=== PATIENT | male | born 1960 | race Two or more races ===

== ENCOUNTER 2022-10-24 09:59 | Inpatient (IN) | payer MEDICAID, OTHER ==
[~2022-10-24] VITALS: Ht 170.2 cm; Wt 127.9 kg
[2022-10-24] VITALS (7 sets, daily range): BP systolic 104–176; BP diastolic 71–118
[2022-10-24 10:38] LABS: Basophils # (auto) 0.1 10 ^3/uL (0-0.2); Basophils % (auto) 0.5 % (0.0-2.0); Eosinophils # (auto) 0.4 10 ^3/uL (0-0.8); Eosinophils % (auto) 3.2 % (0.0-7.0); Hematocrit 49.2 % (41.0-53.0); Hemoglobin 15.7 g/dL (13.5-17.5); Lymphocytes # (auto) 4.8 10 ^3/uL (0.4-5.4); Lymphocytes % (auto) 39.4 % (10.0-50.0); Mean Corpuscular Hemoglobin 27.7 pg (28.0-32.0); Mean Corpuscular Hgb Conc. 31.8 g/dL (32.0-36.0); Mean Corpuscular Volume 87.1 fL (80.0-100.0); Monocytes # (auto) 0.9 10 ^3/uL (0-1.3); Monocytes % (auto) 7.1 % (0.0-12.0); Neutrophils # (auto) 6.1 10 ^3/uL (1.6-8.6); Neutrophils % (auto) 49.8 % (37.0-80.0); Nucleated Red Blood Cells % 0.1 %; Red Blood Cells 5.64 10^6/uL (4.5-5.90); Red Cell Distribution Width 15.2 % (11.8-14.3); White Blood Cell 12.1 10^3/uL (4.4-10.8)
[2022-10-24 10:47] LABS: Albumin 3.4 g/dL (3.4-5.0); Calcium 8.6 mg/dL (8.5-10.1); Potassium 3.9 mmol/L (3.5-5.1)
[2022-10-24 10:49] LABS: BUN/Creatinine Ratio 11.5; Total Protein 7.1 g/dL (6.4-8.2)
[2022-10-24] MEDS ORDERED: ASPirin 81 mg TAB PO ONE (12:15)
[2022-10-24] MEDS ORDERED: IOHEXOL 350 MG/ML 100ML IJ ONE (12:22)
[2022-10-24] MEDS ORDERED: ENOXAPARIN SOD 120 MG/0.8 ML SYRINGE SC ONE (13:15)
[2022-10-24] MEDS ORDERED: HEPARIN SODIUM (PORCINE) 5000 UNITS/ML 1ML VIAL IV ONE ×3 (13:30→20:00)
[2022-10-24] MEDS ORDERED: HEPARIN DRIP/D5W 100UNITS/ML 250 ML IV SCH ×2 (13:30→20:00)
[2022-10-24 14:05] LABS: INR 1.04 (0.9-1.15); Partial Thromboplastin Time 28.2 sec (24.6-33.4)
[2022-10-24] MEDS ORDERED: NITROGLYCERIN 0.4 MG SL TAB SL PRN (15:30)
[2022-10-24] MEDS ORDERED: MORPHINE SULFATE INJ 2 MG/ml SYRG IV PRN (15:30)
[2022-10-24] MEDS ORDERED: IODIXANOL 320MG/ML 100ML BTL IV ONE ×3 (16:36→19:12)
[2022-10-24] MEDS ORDERED: LIDOCAINE 2%HCL (LOCAL ANESTH.) INJ 10ml MDV ONE (16:37)
[2022-10-24] MEDS ORDERED: ANGIOMAX 250 MG VIAL IV ONE ×2 (16:50→17:52)
[2022-10-24] MEDS ORDERED: HEPARIN SODIUM (PORCINE) 5000 UNITS/ML 1ML VIAL ONE ×2 (16:51→19:19)
[2022-10-24] MEDS ORDERED: SODIUM CHL 0.9% 50 ML ONE ×2 (16:51→17:52)
[2022-10-24] MEDS ORDERED: fentaNYL CITRATE 100 MCG/2 ML VL ONE (16:51)
[2022-10-24] MEDS ORDERED: MIDAZOLAM HCL 2MG/2ML 2ml VIAL (1mg/ml) ONE (16:51)
[2022-10-24] MEDS ORDERED: HYDROcodone-ACET 5/325MG TAB PO PRN (20:00)
[2022-10-24] MEDS ORDERED: ACETAMINOPHEN 500 MG TAB PO PRN (20:00)
[2022-10-24] MEDS ORDERED: ONDANSETRON HCL 4 MG/2 ML VIAL IV PRN (20:00)
[2022-10-24 20:43] LABS: INR 2.46 (0.9-1.15); Partial Thromboplastin Time 69.9 sec (24.6-33.4)
[2022-10-24] MEDS: SODIUM CHLORIDE 0.9% 1,000 ML IV SCH (21:17)
[2022-10-25] VITALS (9 sets, daily range): BP systolic 100–133; BP diastolic 48–84
[2022-10-25 03:52] LABS: Basophils # (auto) 0 10 ^3/uL (0-0.2); Basophils % (auto) 0.6 % (0.0-2.0); Eosinophils # (auto) 0.2 10 ^3/uL (0-0.8); Eosinophils % (auto) 2.5 % (0.0-7.0); Hematocrit 41.6 % (41.0-53.0); Hemoglobin 13.5 g/dL (13.5-17.5); Lymphocytes # (auto) 2.6 10 ^3/uL (0.4-5.4); Lymphocytes % (auto) 30.4 % (10.0-50.0); Mean Corpuscular Hemoglobin 28.1 pg (28.0-32.0); Mean Corpuscular Hgb Conc. 32.4 g/dL (32.0-36.0); Mean Corpuscular Volume 86.6 fL (80.0-100.0); Monocytes # (auto) 0.6 10 ^3/uL (0-1.3); Monocytes % (auto) 7.4 % (0.0-12.0); Neutrophils % (auto) 59.1 % (37.0-80.0); Nucleated Red Blood Cells % 0.1 %; Red Blood Cells 4.81 10^6/uL (4.5-5.90); White Blood Cell 8.5 10^3/uL (4.4-10.8)
[2022-10-25 04:03] LABS: BUN/Creatinine Ratio 17.2; Calcium 8.1 mg/dL (8.5-10.1); Potassium 4.3 mmol/L (3.5-5.1)
[2022-10-25 04:05] LABS: INR 1.08 (0.9-1.15); Partial Thromboplastin Time 36.1 sec (24.6-33.4)
[2022-10-25 04:06] LABS: Total Protein 6.3 g/dL (6.4-8.2)
[2022-10-25] MEDS: SODIUM CHLORIDE 0.9% 1,000 ML IV SCH (06:41)
[2022-10-25] MEDS ORDERED: ASPirin 81 mg TAB PO SCH (10:00)
[2022-10-25] MEDS ORDERED: PANTOPRAZOLE 40 MG/10 ML VIAL INJ IV SCH (10:00)
[2022-10-25] MEDS ORDERED: IODIXANOL 320MG/ML 100ML BTL IV ONE (10:02)
[2022-10-25] MEDS ORDERED: LIDOCAINE 2%HCL (LOCAL ANESTH.) INJ 10ml MDV ONE (10:03)
[2022-10-25] MEDS ORDERED: MIDAZOLAM HCL 2MG/2ML 2ml VIAL (1mg/ml) ONE (10:31)
[2022-10-25] MEDS ORDERED: fentaNYL CITRATE 100 MCG/2 ML VL ONE (10:31)
[2022-10-25] MEDS ORDERED: ANGIOMAX 250 MG VIAL IV ONE (10:31)
[2022-10-25] MEDS ORDERED: SODIUM CHL 0.9% 50 ML ONE (10:31)
[2022-10-25] MEDS ORDERED: ENOXAPARIN SOD 100 MG/1 ML SYRINGE SC ONE (11:45)
[2022-10-25] MEDS ORDERED: RIVAROXABAN 20 MG TAB PO SCH ×2 (12:30→18:00)
[2022-10-25] MEDS ORDERED: ATORVASTATIN 20 MG TAB PO SCH (22:00)
[2022-10-26] MEDS ORDERED: ENOXAPARIN SOD 120 MG/0.8 ML SYRINGE SC SCH (04:00)
[2022-10-26 05:00] VITALS: BP 114/67
[2022-10-26 09:00] VITALS: BP 151/82
[2022-10-26 11:06] LABS: Basophils # (auto) 0 10 ^3/uL (0-0.2); Basophils % (auto) 0.4 % (0.0-2.0); Eosinophils # (auto) 0.3 10 ^3/uL (0-0.8); Eosinophils % (auto) 4.7 % (0.0-7.0); Hematocrit 42.1 % (41.0-53.0); Hemoglobin 13.4 g/dL (13.5-17.5); Lymphocytes # (auto) 2.1 10 ^3/uL (0.4-5.4); Lymphocytes % (auto) 29.5 % (10.0-50.0); Mean Corpuscular Hemoglobin 27.8 pg (28.0-32.0); Mean Corpuscular Hgb Conc. 31.9 g/dL (32.0-36.0); Mean Corpuscular Volume 87.1 fL (80.0-100.0); Monocytes # (auto) 0.6 10 ^3/uL (0-1.3); Monocytes % (auto) 8.3 % (0.0-12.0); Neutrophils % (auto) 57.1 % (37.0-80.0); Red Blood Cells 4.83 10^6/uL (4.5-5.90); Red Cell Distribution Width 15.1 % (11.8-14.3); White Blood Cell 7.1 10^3/uL (4.4-10.8)
[2022-10-26 11:30] LABS: Albumin 3.2 g/dL (3.4-5.0); Calcium 8.6 mg/dL (8.5-10.1); Potassium 4.2 mmol/L (3.5-5.1)
[2022-10-26 11:35] LABS: BUN/Creatinine Ratio 13.6; Bilirubin, Total 0.9 mg/dL (0.2-1.0); Total Protein 6.4 g/dL (6.4-8.2)
[2022-10-26 12:30] VITALS: BP 148/88
[2022-10-26] MEDS ORDERED: RIV20T PO (13:56)
[2022-10-26] MEDS ORDERED: ATOR20TA50 PO (13:56)
== END 2022-10-26 16:30 | disposition home or self-care (01) | DRG 182 ==
LOC: ER 09:59 → TELE 15:17 → EDBD 15:17 → TELE-WESTW 20:40
PROVIDERS: ADMIT Nurse Practitioner Family; ATTEND Student in an Organized Health Care Education/Training Program
PROC: 02CQ3ZZ Extirpation of Matter from Right Pulmonary Artery, Percutaneous Approach (ICD-10-PCS; 2022-10-24)
PROC: B31SYZZ Fluoroscopy of Right Pulmonary Artery using Other Contrast (ICD-10-PCS; 2022-10-24)
PROC: 02CR3ZZ Extirpation of Matter from Left Pulmonary Artery, Percutaneous Approach (ICD-10-PCS; 2022-10-24)
PROC: 04CL3ZZ Extirpation of Matter from Left Femoral Artery, Percutaneous Approach (ICD-10-PCS; principal; 2022-10-25)
PROC: 04CN3ZZ Extirpation of Matter from Left Popliteal Artery, Percutaneous Approach (ICD-10-PCS; 2022-10-25)
PROC: B519YZZ Fluoroscopy of Inferior Vena Cava using Other Contrast (ICD-10-PCS; 2022-10-25)
PROC: B51CYZZ Fluoroscopy of Left Lower Extremity Veins using Other Contrast (ICD-10-PCS; 2022-10-25)
DX: I82.412 Acute embolism and thrombosis of left femoral vein (principal); I26.92 Saddle embolus of pulmonary artery without acute cor pulmonale; E66.01 Morbid (severe) obesity due to excess calories; E78.5 Hyperlipidemia, unspecified; R73.03 Prediabetes; R73.9 Hyperglycemia, unspecified; Z68.41 Body mass index [BMI] 40.0-44.9, adult; Z79.01 Long term (current) use of anticoagulants; Z79.82 Long term (current) use of aspirin
CPT/HCPCS: 33915; 34201; 36415; 71045; 71275; 75741; 75820; 80053; 80061; 81241; 83036; 83735; 83880; 84443; 84484; 85025; 85610; 85730; 86850; 86900; 86901; 87426; 93005; 93306; 93971; 96365; 96376; 99152; 99153; 99291; G0378; J2001; J2250; Q9967

== ENCOUNTER 2022-12-31 12:18 | Emergency (ER) | payer MEDICAID ==
[~2022-12-31] VITALS: Ht 172.7 cm; Wt 135.9 kg
[~2022-12-31 12:18] MED LIST: ATO40T PO; ATOR20TA50 PO; RIV20T PO
[2022-12-31] MEDS ORDERED: RIV20T PO (14:50)
[2022-12-31] MEDS ORDERED: ATO40T PO (14:50)
[2022-12-31 15:18] VITALS: BP 146/90
== END 2022-12-31 15:23 | disposition home or self-care (01) ==
LOC: ER 12:18
DX: F41.9 Anxiety disorder, unspecified (principal); E78.5 Hyperlipidemia, unspecified; Z76.0 Encounter for issue of repeat prescription; Z79.899 Other long term (current) drug therapy

== ENCOUNTER 2023-06-04 11:56 | Emergency (ER) | payer MEDICAID ==
[~2023-06-04] VITALS: Ht 167.6 cm; Wt 146.9 kg
[2023-06-04 13:10] LABS: Basophils # (auto) 0.1 10 ^3/uL (0-0.2); Basophils % (auto) 0.7 % (0.0-2.0); Eosinophils # (auto) 0.2 10 ^3/uL (0-0.8); Eosinophils % (auto) 2.9 % (0.0-7.0); Hematocrit 40.5 % (41.0-53.0); Hemoglobin 13.2 g/dL (13.5-17.5); Lymphocytes # (auto) 2.4 10 ^3/uL (0.4-5.4); Lymphocytes % (auto) 30.9 % (10.0-50.0); Mean Corpuscular Hemoglobin 28.7 pg (28.0-32.0); Mean Corpuscular Hgb Conc. 32.7 g/dL (32.0-36.0); Mean Corpuscular Volume 87.8 fL (80.0-100.0); Monocytes # (auto) 0.8 10 ^3/uL (0-1.3); Monocytes % (auto) 9.8 % (0.0-12.0); Neutrophils # (auto) 4.3 10 ^3/uL (1.6-8.6); Neutrophils % (auto) 55.7 % (37.0-80.0); Nucleated Red Blood Cells % 0.1 %; Red Blood Cells 4.61 10^6/uL (4.5-5.90); Red Cell Distribution Width 15.5 % (11.8-14.3); White Blood Cell 7.8 10^3/uL (4.4-10.8)
[2023-06-04 13:14] LABS: Potassium 3.6 mmol/L (3.5-5.1)
[2023-06-04 13:21] LABS: BUN/Creatinine Ratio 9.6 (10.0-20.0); Bilirubin, Total 0.6 mg/dL (0.2-1.0); Calcium 8.1 mg/dL (8.5-10.1); Total Protein 6.6 g/dL (6.4-8.2)
[2023-06-04] MEDS ORDERED: IOHEXOL 350 MG/ML 100ML IJ ONE (19:51)
[2023-06-04 20:30] LABS: INR 1.04 (0.9-1.15); Partial Thromboplastin Time 22.4 SEC (24.5-34.5)
[2023-06-04] MEDS ORDERED: AMPICILLIN & SULBACTAM SODIUM 3 GM in SODIUM CHL 0.9% 100 ML IV SCH (21:15)
[2023-06-04] MEDS ORDERED: HYDROcodone-ACET 5/325MG TAB PO ONE (21:15)
[2023-06-04] MEDS ORDERED: SODIUM CHLORIDE 0.9% 500 ML IV ONE (21:15)
[2023-06-05] MEDS ORDERED: CLIN-203 PO (00:42)
[2023-06-05] MEDS ORDERED: ALBUAER3 IN (00:42)
[2023-06-05] MEDS ORDERED: ACET1CAP14 PO (00:42)
[2023-06-05 01:40] VITALS: O2SAT 95
[2023-06-05] MEDS ORDERED: VANCOMYCIN 1GM/250ML 250 ML IV ONE (01:45)
[2023-06-05 03:03] VITALS: BP 168/117; PULSE 105; RESP 18; TEMP 97.8; O2SAT 96
== END 2023-06-05 03:03 | disposition home or self-care (01) ==
LOC: ER 11:56
DX: L03.116 Cellulitis of left lower limb (principal); J84.10 Pulmonary fibrosis, unspecified; M25.562 Pain in left knee; M25.561 Pain in right knee; R07.89 Other chest pain; R60.0 Localized edema; E11.9 Type 2 diabetes mellitus without complications; E78.5 Hyperlipidemia, unspecified; I10 Essential (primary) hypertension
CPT/HCPCS: 36415; 71275; 73562; 80053; 83880; 84443; 84484; 85025; 85610; 85730; 93970; 96365; 99285; J3370; Q9967; 93005

== ENCOUNTER 2025-04-20 08:01 | Day surgery (SDC) | payer MEDICAID ==
[~2025-04-20] VITALS: Ht 172.7 cm; Wt 121.6 kg
[~2025-04-20 08:01] MED LIST changes: +AMLO1TAB23 PO; -ATO40T PO; -ATOR20TA50 PO; +CHOL100047 PO; +EMPA1TAB3 PO; +GLIP10TA9 PO; +HYDR12.59 PO; +LOSA-535 PO; +METO-6 PO
[2025-04-20] MEDS ORDERED: ceFAZolin 2 GM/D5W50ml 50 ML IV ONE (09:36)
[2025-04-20] MEDS ORDERED: PROPOFOL 10 MG/ML 20 ML IV ONE (11:39)
[2025-04-20] MEDS ORDERED: fentaNYL CITRATE 100 MCG/2 ML VL ONE (11:39)
[2025-04-20] MEDS ORDERED: KETAMINE 50mg/ML 1ml syringe ONE (11:39)
[2025-04-20] MEDS ORDERED: LIDOCAINE 1% INJ PF 5ML AMP ONE (11:39)
[2025-04-20] MEDS ORDERED: MIDAZOLAM HCL 2MG/2ML 2ml VIAL (1mg/ml) ONE (11:39)
[2025-04-20] MEDS ORDERED: ONDANSETRON HCL 4 MG/2 ML VIAL ONE (11:39)
[2025-04-20] MEDS ORDERED: METOCLOPRAMIDE HCL 5MG/ml INJ 2ml VIAL IV ONE (12:15)
[2025-04-20] MEDS ORDERED: MORPHINE SULFATE 4 MG/ML SYR/VIAL IV PRN (12:15)
[2025-04-20] MEDS ORDERED: KETOROLAC TROMETH 30 MG/ML 1ML VIAL IV ONE (12:15)
[2025-04-20] MEDS ORDERED: MORPHINE SULFATE INJ 2 MG/ml SYRG IV PRN (12:15)
[2025-04-20] MEDS ORDERED: ACCU-CHEK COMFORT CURVE STRIP VI ONE (12:15)
[2025-04-20] MEDS ORDERED: HYDROmorphone HCL 2 MG/ML VL/or syr IV PRN ×2 (12:15)
[2025-04-20] MEDS: BUPIVACAINE HCL 0.25% P/F 10 ML VIAL ONE (12:41)
[2025-04-20 12:49] VITALS: PULSE 72; RESP 20; TEMP 98.4; O2SAT 97
[2025-04-20 13:29] VITALS: BP 118/73; PULSE 66; RESP 15; O2SAT 96
--- NOTE | 2025-04-21 07:45 | DVHOP2 ---
Operative Report - 2 Report Details Date: 04/20/25 Preop Diagnosis: Right hand mass Postop Diagnosis: Right hand mass Surgeon: Justen Askew MD Billboard Installer: Benjamín NEAL Anesthesiologist: Nael HOFFMAN Anesthesia: Mac, Local Consent: The patient was informed of the risks and benefits of the procedure. These include but are not limited to complications of anesthesia, postoperative infection, incomplete relief of symptoms, recurrence of symptoms, damage to blood vessels, nerves and tendons, deep venous thrombosis, pulmonary embolism and possible need for repeat surgery in the future. Estimated Blood Loss: 2 cc Name of Procedure Performed Right dorsal hand mass removal, extensor tendon debridement Procedure Details Procedure Details: After administering appropriate antibiotics and anesthesia, the upper extremity was prepped and draped in the usual standard fashion. The arm was exsanguinated with Esmarch, and the tourniquet inflated to 250 mmHg. A 4 cm transverse incision was made over the right hand mass. Dissection was carried down to the extensor sheath with care taken to identify and protect the neurovascular bundles. Patient was noted to have a large mass structure off the extensor sheath which was removed with contents cultured and the cyst was debrided. Extensor sheath was debrided along with synovectomy. After irrigating out the wound with copious amounts of sterile saline, the skin was closed with 3-0 nylon simple interrupted sutures. The patient was sent to the recovery room in good condition, having tolerated the procedure well. Specimen: culture; specimen Condition Good Disposition Home JUSTEN ASKEW MD Apr 21, 2025 07:45
== END 2025-04-20 13:39 | disposition home or self-care (01) ==
LOC: SUR 08:01
PROVIDERS: ATTEND Orthopaedic Surgery Adult Reconstructive Orthopaedic Surgery
DX: R22.31 Localized swelling, mass and lump, right upper limb (principal); M67.843 Other specified disorders of tendon, right hand; M79.89 Other specified soft tissue disorders; M17.0 Bilateral primary osteoarthritis of knee; Z79.899 Other long term (current) drug therapy; Z86.718 Personal history of other venous thrombosis and embolism; Z98.890 Other specified postprocedural states; Z88.0 Allergy status to penicillin
CPT/HCPCS: 26160; 82962; 87070; 87075; 87205; 88305; J0690; J2250; J2405; J2704; J3010; J3490

== ENCOUNTER 2025-06-16 18:19 | Emergency (ER) | payer MEDICAID ==
[~2025-06-16] VITALS: Ht 172.7 cm; Wt 132.4 kg
--- NOTE | 2025-06-16 18:37 | ED.PDOC ---
GI ASSESSMENT HPI Comments 65-year-old male with a history of gallstones, PE, diabetes, hypertension, and hyperlipidemia presents to the ED out of 10 left lower quadrant abdominal pain the associated radiating epigastric pain, nausea, vomiting and back pain. Patient states that his pain started yesterday in his found no alleviating factors at this time. Patient is blood pressure was noted to be with a 154/101 upon triage assessment. Patient denies, headache, blurry vision, weakness or any other associated symptoms, modifying factors at this time. Chief Complaint: Abdominal Pain Time Seen by MD: 18:33 Primary Care Provider: UNKNOWN Reviewed Notes: Nurses Notes, Medications, Allergies Allergies: Coded Allergies: Penicillins (Verified Allergy, Unknown, 06/16/25) Home Meds Active Scripts Rivaroxaban (Xarelto Tablet) 20 Mg Tb, 20 MG PO DAILY for 30 Days, #30 TAB Prov:ZANIABVERONICA PAC 12/31/22 Reported Medications Amlodipine Besylate (Amlodipine Besylate) 10 Mg Tab, 10 MG PO DAILY, TAB 04/16/25 Glipizide (Glipizide) 10 Mg Tab, 10 MG PO, TAB 04/16/25 Empagliflozin (Jardiance) 25 Mg Tab, 25 MG PO DAILY, TAB 04/16/25 Cholecalciferol (D3) 1,000 Unit Cap, 1000 UNIT PO DAILY, CAP 04/16/25 Hydrochlorothiazide (Hydrochlorothiazide) 12.5 Mg Cap, 12.5 MG PO DAILY, CAP 04/16/25 Metoprolol Succinate (Toprol Xl) 50 Mg Tab, 100 MG PO DAILY, TAB 04/16/25 Losartan Potassium (Losartan Potassium) 100 Mg Tab, 100 MG PO DAILY, TAB 04/16/25 Mode of Arrival: Ambulatory Timing: Days Duration: Since onset, Days Prehospital treatment: None Vomitus: Watery Stool: Normal Severity: Moderate Recent: None Recent Hx of: Diabetes Pain Location: Epigastric, LUQ, LLQ Modifying Factors: Exertion, Position Associated sign and symptoms: Nausea, Vomiting, Abdominal Pain Vital Signs Vital Signs Date Time Temp Pulse Resp B/P (MAP) Pulse Ox O2 Delivery O2 Flow Rate FiO2 06/16/25 21:06 105 06/16/25 20:21 98.7 16 141/86 (104) 97 98.7 Physical Exam PHYSICAL EXAM: General: Awake, alert and oriented. No acute distress. Skin: Skin in warm, dry and intact. Appropriate color for ethnicity. HEENT: The head is normocephalic and atraumatic. Conjunctivae are clear without exudates or hemorrhage. Sclera is non-icteric. EOM are intact. No signs of nystagmus. Eyelids are normal in appearance without swelling or lesions. Oral mucosa is pink and moist Neck: The neck is supple with normal range of motion. No JVD. Cardiac: Heart rate and rhythm are normal. No murmurs, gallops, or rubs are auscultated. Respiratory: No signs of respiratory distress. Lung sounds are clear in all lobes bilaterally without rales, rhonchi, or wheezes. Abdominal: Abdomen is soft, positive left upper quadrant tenderness, no guarding or rigidity. Bowel sounds are present and normoactive in all four quadrants. Extremities: Upper and lower extremities are atraumatic in appearance without deformity or edema. Neurological: The patient is awake, alert and oriented to person, place, and time with normal speech. Speech is clear. There is no facial asymmetry. Psychiatric: Appropriate mood and affect. Good judgement and insight. Review of Systems: REVIEW OF SYSTEMS: General: No fever, no chills, or fatigue HEENT: No sore throat, no earache, no congestion, no neck pain. Cardiac: No chest pain. No palpitations. Lungs: No shortness of breath, no cough. GI: + nausea, + vomiting, no diarrhea, no constipation, + abdominal pain : No dysuria, frequency, or urgency. No hematuria. Musculoskeletal: No joint pain , no joint swelling, no extremity edema. Skin: No rash, no itching. Neuro: No headache, no dizziness, no weakness Past Medical History PAST MEDICAL HISTORY: DM, High Lipids, HTN, PE Surgical History: Denies all surgeries Family History Family History: Reviewed,noncontributory to illness Social History Smoker: Non-Smoker Alcohol: Denies ETOH Use Drugs: Denies Drug Use Lives In: Home EKG EKG : Pulse Rate (adult): 105 [place]: Normal Cardiac Rhythm: ST Block: None Hypertrophy: None ST: Normal Was a procedure done? Was a procedure done?: No GI differential Dx Differential Diagnosis: Appendicitis, Bowel Obstruction, Cholangitis, Cholecystitis, Constipation, Diverticular disease, Gastritis/PUD, Pancreatitis, UTI, Urolithiasis, Dehydration, Electrolyte Imbalance, Food Poisoning, Bacterial, Parasitic, Stress Ulcer, Kidney Stone X-Ray, Labs, Meds, VS Vital Signs Date Time Temp Pulse Resp B/P (MAP) Pulse Ox O2 Delivery O2 Flow Rate FiO2 06/16/25 21:06 105 06/16/25 20:56 105 06/16/25 20:21 98.7 109 16 141/86 (104) 97 98.7 06/16/25 18:26 98.2 116 20 154/101 97 98.2 Lab Test 06/16/25 19:12 Range/Units White Blood Count 10.3 4.4-10.8 10^3/uL Red Blood Count 5.10 4.5-5.90 10^6/uL Hemoglobin 14.6 13.5-17.5 g/dL Hematocrit 43.4 41.0-53.0 % Mean Corpuscular Volume 85.1 80.0-100.0 fL Mean Corpuscular Hemoglobin 28.6 28.0-32.0 pg Mean Corpuscular Hemoglobin Concent 33.6 32.0-36.0 g/dL Red Cell Distribution Width 16.2 H 11.8-14.3 % Platelet Count 235 140-450 10^3/uL Mean Platelet Volume 8.7 6.9-10.8 fL Neutrophils (%) (Auto) 64.0 37.0-80.0 % Lymphocytes (%) (Auto) 24.7 10.0-50.0 % Monocytes (%) (Auto) 9.4 0.0-12.0 % Eosinophils (%) (Auto) 1.5 0.0-7.0 % Basophils (%) (Auto) 0.4 0.0-2.0 % Neutrophils # (Auto) 6.6 1.6-8.6 10 ^3/uL Lymphocytes # (Auto) 2.5 0.4-5.4 10 ^3/uL Monocytes # (Auto) 1.0 0-1.3 10 ^3/uL Eosinophils # (Auto) 0.2 0-0.8 10 ^3/uL Basophils # (Auto) 0 0-0.2 10 ^3/uL Nucleated Red Blood Cells 0.0 % Sodium Level 138 136-145 mmol/L Potassium Level 3.2 L 3.5-5.1 mmol/L Chloride Level 105 98-107 mmol/L Carbon Dioxide Level 23 20-31 mmol/L Anion Gap 10 5-15 Blood Urea Nitrogen 6 L 9-23 mg/dL Creatinine 0.82 0.700-1.30 mg/dL Glomerular Filtration Rate Calc 99 >90 mL/min BUN/Creatinine Ratio 7.3 L 10.0-20.0 Serum Glucose 135 H 74-106 mg/dL Calcium Level 8.7 8.7-10.4 mg/dL Total Bilirubin 0.9 0.2-1.0 mg/dL Aspartate Amino Transferase (AST) 39 13-40 U/L Alanine Aminotransferase (ALT) 42 H 7-40 U/L Alkaline Phosphatase 59 46-116 U/L Total Protein 6.7 5.7-8.2 g/dL Albumin 4.0 3.2-4.8 g/dL Lipase 32 12-53 U/L Current Medications Medications (Trade) Dose Ordered Sig/Steven Route Start Time Stop Time Status Last Admin Al Hydrox/Mg Hydrox/Simethicone (Maalox Plus) 30 ml ONCE ONCE PO 06/16/25 18:45 06/16/25 18:46 DC 06/16/25 20:20 Lidocaine HCl (Xylocaine 2% Viscous) 10 ml ONCE ONCE PO 06/16/25 18:45 06/16/25 18:46 DC 06/16/25 20:20 PATIENT: MICHAEL PAN ACCT: [id number] UNIT: [id number] : 1960 LOC: ER ROOM / BED: / AGE / SEX: 65 / M ADM STATUS: REG ER SERVICE [id number] ORDERING PHYSICIAN: TAIWO MORRIS MD PROCEDURE(s): ABPL - CT AB PEL WO CON-NO ORAL OR IV REASON: Epigastric, left upper quadrant abdominal pain ORDER NUMBER(s): [id number], ACCESSION NUMBER(s): [id number] Exam: CT CT AB PEL WO CON-NO ORAL OR IV History: Epigastric, left upper quadrant abdominal pain Comparison Study: [facility] on DOS: 10/25/22 TECHNIQUE: Multidetector CT of the abdomen and pelvis was performed from lung bases to pubic symphysis. Imaging was performed without IV contrast. Axial, coronal, and sagittal multiplanar reformats were obtained from the axial data set by the technologist. RADIATION DOSE: CTDI vol 25.46 mGy. DLP 1566.05 mGy.cm Findings: Limited evaluation of the solid organs in the absence of IV contrast. Evaluation is also degraded by motion artifact. Liver: Unremarkable. Spleen: Unremarkable. Pancreas: Unremarkable. Gallbladder: Unremarkable. Adrenals: Unremarkable Kidneys: Unremarkable. Pelvic Viscera: Prostatomegaly. Vasculature: Mild atherosclerotic aortoiliac calcifications. Retroperitoneum: Unremarkable. Bowel: No bowel obstruction. No CT evidence of appendicitis. Musculoskeletal: Unremarkable. Soft tissues: Unremarkable Lungs: The lung bases are clear. Impression: 1. No acute abdominopelvic abnormality identified. 2. Incidental findings as detailed. Time of 1ST Reevaluation: 19:05 Reevaluation 1ST: Unchanged Patient Education/Counseling: Diagnosis, Treatment, Need For Follow Up Family Education/Counseling: No Family Present SEPSIS Sepsis Screen Date sepsis recognized/suspect: Jun 16, 2025 Time Sepsis recognized/suspect: 1826 Recent Procedure: No On Antibiotic Therapy: No Respiratory Rate >20: No Heart Rate >90: No Temp<36 C (96.8 F) or >38.3 C: No SBP <90 or MAP <65 mmHG: No New Acute Mental Status Change: No Is the patient on CPAP, BIPAP,: No Physician Orders Troponin-I Hs (06/17/25 00:00) Troponin-I Hs (06/17/25 03:00) Troponin-I Hs (06/17/25 06:00) Urinalysis (06/16/25 18:36) Ct Ab Pel Wo Con-No Oral Or Iv (06/16/25 18:36) Electrocardigram (06/16/25 18:36) Vital Signs Date Time Temp Pulse Resp B/P (MAP) Pulse Ox O2 Delivery O2 Flow Rate FiO2 06/16/25 21:06 105 06/16/25 20:56 105 06/16/25 20:21 98.7 109 16 141/86 (104) 97 98.7 06/16/25 18:26 98.2 116 20 154/101 97 98.2 Laboratory Tests Test 06/16/25 19:12 White Blood Count 10.3 10^3/uL (4.4-10.8) Medications Medications Dose Ordered Sig/Steven Route Start Time Stop Time Status Last Admin Dose Admin Al Hydrox/Mg Hydrox/Simethicone 30 ml ONCE ONCE PO 06/16/25 18:45 06/16/25 18:46 DC 06/16/25 20:20 Lidocaine HCl 10 ml ONCE ONCE PO 06/16/25 18:45 06/16/25 18:46 DC 06/16/25 20:20 Departure 1 Departure Time of Disposition: 20:23 Impression: Primary Impression: Abdominal pain Additional Impression: Elevated ALT measurement Disposition: HOME / SELF CARE / HOMELESS Condition: Stable Additional Instructions: INSTRUCCIONES DE MILI DE Urgencias Instrucciones: Margaret atentamente todas las instrucciones proporcionadas en laura paquete. Aunque le hayan dado el mili del Departamento de Emergencias, esto no significa que tenga un "certificado de buena carmen". Hoy no se espinoza realizado ningn diagnstico definitivo para beth sntomas. Es posible que ests en proceso de desarrollar lauren enfermedad grave. Es por eso que debe regresar al servicio de urgencias sin falta si presenta algn sntoma nuevo o que empeora (especialmente si beth sntomas incluyen dolor en el pecho, dificultad para respirar, dolor abdominal, fiebre, dolor de dee dee, confusin, dificultad para yudelka o caminar). Tambin es muy importante que consulte a un mdico de atencin primaria dentro de los prximos 3 a 5 melendez para realizar un seguimiento. Si no puede conseguir lauren homero, regrese al servicio de urgencias para lauren nueva evaluacin. Dolor abdominal: instrucciones de cuidado Imagen de los cuatro cuadrantes del abdomen. Descripcin general El dolor abdominal tiene muchas causas posibles. Algunas no son graves y mejoran por s solas en unos melendez. Otras requieren ms pruebas y tratamiento. Si el dolor contina o empeora, es necesario volver a examinarlo y es posible que necesite ms pruebas para averiguar qu es lo que est mal. Es posible que necesite lauren ciruga para corregir el problema. No ignore los sntomas nuevos, sofie fiebre, nuseas y vmitos, problemas para orinar, dolor que empeora y mareos. Estos pueden ser signos de un problema ms grave. Si no mejora, es posible que necesite ms pruebas o tratamiento. El mdico lo espinoza examinado cuidadosamente, luann pueden surgir problemas ms adelante. Si nota algn problema o sntomas nuevos, busque tratamiento mdico de inmediato . El seguimiento mdico es lauren parte fundamental de pinto tratamiento y pinto seguridad. Asegrese de programar y acudir a todas las citas, y llame a pinto mdico si tiene problemas. Tambin es lauren buena idea saber los resultados de beth pruebas y llevar lauren lista de los medicamentos que amaury. Food Service Helper puedes cuidarte en casa? Descansa hasta que te sientas mejor. Para prevenir la deshidratacin, mel abundante lquido. Elija agua y otros lquidos mariya hasta que se sienta mejor. Si tiene lauren enfermedad renal, cardaca o heptica y debe limitar los lquidos, consulte con pinto mdico antes de aumentar la cantidad de lquidos que harry. Cuando sientas ganas de comer, empieza con pequeas cantidades. No tomes alcohol, cafena ni alimentos picantes, calientes o con alto contenido de grasa ramon laura o dos melendez. Evite los medicamentos antiinflamatorios sofie la aspirina, el ibuprofeno (Advil, Motrin) y el naproxeno (Aleve). Pueden causar malestar estomacal. Hable con pinto mdico si amaury aspirina a diario por otro problema de carmen. Cundo debes pedir ayuda? Llame al 911 en cualquier momento en que crea que puede necesitar atencin de emergencia. Por ejemplo, llame si: Te desmayaste (perdiste el conocimiento). Tiene heces de color marrn o con gregorio lionel. Vomitas lionel o lo que parecen posos de caf. Tienes un dolor intenso en el vientre. Llame a pinto mdico ahora o busque atencin mdica inmediata si: El dolor empeora, especialmente si se concentra en lauren luis fernando determinada del abdomen. Tiene fiebre nueva o ms mili. Las heces son negras y parecen alquitrn, o tienen vetas de lionel. Tienes sangrado vaginal inesperado. Tiene sntomas de lauren infeccin del tracto urinario. Estos pueden incluir: Dolor al orinar. Orinar con ms frecuencia de lo habitual. Lionel en la orina. Se siente mareado o aturdido, o siente que se puede desmayar. Preste atencin a los cambios en pinto carmen y asegrese de comunicarse con pinto mdico si: No ests mejorando sofie esperabas. Crditos para el dolor abdominal: instrucciones de cuidado Actualizado al: 19 2023 Autor: Personal de [facility], [facility] Pruebas de funcin heptica Descripcin general de la prueba Se utilizan algunos anlisis de lionel para determinar si el hgado est daado o inflamado. Aunque estas pruebas ayudan al mdico a evaluar el funcionamiento del hgado, no pueden determinar si tiene hepatitis C. Pruebas que evalan la funcin heptica Pinto mdico podra realizar pruebas para medir ciertas sustancias qumicas producidas por el hgado. Estas pruebas pueden ayudarle a evaluar el fun cionamiento de pinto hgado. Las pruebas pueden medir: Bilirrubina. Albmina. Protena srica total. Pruebas que detectan la inflamacin del hgado (estudios de enzimas hepticas) Pinto hgado puede resultar daado si tiene niveles elevados de: Alanina aminotransferasa (ALT o SGPT). Aspartato aminotransferasa (AST o SGOT). Un nivel elevado de fosfatasa alcalina (FA) puede indicar un bloqueo de los conductos biliares. Por qu se hace Las pruebas de hgado se realizan cuando un historial mdico o un examen fsico sugieren que algo puede estar mal con pinto hgado. Estas pruebas tambin pueden ayudar a diagnosticar infecciones. Por ejemplo, si las enzimas hepticas estn altas, se pueden realizar pruebas para determinar si tiene hepatitis. Si est tomando ciertos medicamentos, es posible que le realicen pruebas de hgado para verificar que el medicamento est funcionando o que no est daando pinto hgado. Food Service Helper prepararse En general, no es necesario hacer nada antes de esta prueba, a menos que pinto mdico se lo indique. Food Service Helper se hace Un profesional de la carmen utiliza lauren aguja para chris lauren muestra de lionel, generalmente del brazo. Resultados Normal Todos los niveles estn dentro del rango normal. Anormal Laura o ms niveles estn fuera del rango normal. Los resultados anormales en las pruebas de funcin heptica pueden indicar que el hgado est inflamado o no funciona correctamente. [place] puede indicar lauren infeccin viral. Crditos para pruebas de funcin heptica Actualizado al: 30 de [email or web address] Autor: Personal de [facility] ([email or web address]) Junta de revisin lachellegricel ([email or web address]) Toda la educacin de [facility] es revisada por un equipo que incluye mdicos, enfermeras, profesionales avanzados, dietistas registrados y otros profesionales de la carmen. Comments 65-year-old male presented with abdominal pain. No peritoneal signs on abdominal exam. No evidence of acute abdomen at this time. patient is well appearing. Labs show no leukocytosis . Mild elevation of LFT noted.. Imaging shows no acute intra abdominal process. Patient is afebrile. Patient is not hypotensive. Low suspicion for acute hepatobiliary disease (including acute cholecystitis, acute pancreatitis, PUD (including perforation), acute infectious process (pneumonia, hepatitis, pyelonephritis), acute appendicitis, vascular catastrophe, bowel obstructions, viscous perforation. Presentation not consistent with other acute, emergent causes of abdominal pain at this time. Patient well-appearing, nontoxic. Advised prompt follow-up with PCP, return to the ED with any new, worsening or concerning symptoms. Critical Care Note Critical Care Time?: No Stability Stability form required: No Heart Score Heart Score: Heart Score Response (Comments) Value History N/A 0 EKG N/A 0 Age N/A 0 Risk Factors N/A 0 Troponin N/A 0 Total 0 I personally scribed for TAIWO MORRIS MD ([email or web address]) on 06/16/25 at 18:37. Electronically submitted by Noah Olivares ([email or web address]). I personally scribed for TAIWO MORRIS MD ([email or web address]) on 06/16/25 at 19:40. Electronically submitted by Noah Olivares ([email or web address]). I personally scribed for TAIWO MORRIS MD ([email or web address]) on 8/5/25 at 21:06. Electronically submitted by Noah Olivares ([email or web address]). TAIWO MORRIS MD Jun 16, 2025 18:37
--- NOTE | 2025-06-16 19:26 | DVH ---
Exam: CT CT AB PEL WO CON-NO ORAL OR IV History: Epigastric, left upper quadrant abdominal pain Comparison Study: [facility] on DOS: 10/25/22 TECHNIQUE: Multidetector CT of the abdomen and pelvis was performed from lung bases to pubic symphysi s. Imaging was performed without IV contrast. Axial, coronal, and sagittal multiplanar reformats were obtained from the axial data set by the technologist. RADIATION DOSE: CTDI vol 25.46 mGy. DLP 1566.05 mGy.cm Findings: Limited evaluation of the solid organs in the absence of IV contrast. Evaluation is also degraded by motion artifact. Liver: Unremarkable. Spleen: Unremarkable. Pancreas: Unremarkable. Gallbladder: Unremarkable. Adrenals: Unremarkable Kidneys: Unremarkable. Pelvic Viscera: Prostatomegaly. Vasculature: Mild atherosclerotic aortoiliac calcifications. Retroperitoneum: Unremarkable. Bowel: No bowel obstruction. No CT evidence of appendicitis. Musculoskeletal: Unremarkable. Soft tissues: Unremarkable Lungs: The lung bases are clear. Impression: 1. No acute abdominopelvic abnormality identified. 2. Incidental findings as detailed.
[2025-06-16 19:53] LABS: Hematocrit 43.4 % (41.0-53.0); Hemoglobin 14.6 g/dL (13.5-17.5); Mean Corpuscular Hemoglobin 28.6 pg (28.0-32.0); Mean Corpuscular Volume 85.1 fL (80.0-100.0); Nucleated Red Blood Cells % 0.0 %
[2025-06-16 20:10] LABS: Albumin 4.0 g/dL (3.2-4.8); Alkaline Phosphatase 59 U/L (46-116); Anion Gap 10 (5-15); BUN/Creatinine Ratio 7.3 (10.0-20.0); Carbon Dioxide 23 mmol/L (20-31); Chloride 105 mmol/L (98-107); Lipase 32 U/L (12-53); Sodium 138 mmol/L (136-145); Total Protein 6.7 g/dL (5.7-8.2)
[2025-06-16 20:11] LABS: Bilirubin, Total 0.9 mg/dL (0.2-1.0)
[2025-06-16 20:19] LABS: Alanine Aminotransferase 42 U/L (7-40); Blood Urea Nitrogen 6 mg/dL (9-23); Calcium 8.7 mg/dL (8.7-10.4); Glucose 135 mg/dL (74-106); Potassium 3.2 mmol/L (3.5-5.1)
[2025-06-16] MEDS: MAALOX PLUS or MAALOX 30 ML PO ONE (20:20)
[2025-06-16] MEDS: LIDOCAINE VISCOUS 2% 15ML UD PO ONE (20:20)
[2025-06-16] MEDS: KETOROLAC TROMETH 30 MG/ML 1ML VIAL IM ONE (23:40)
[2025-06-16] MEDS: ACETAMINOPHEN 325 MG TAB PO ONE (23:41)
[2025-06-16 23:42] VITALS: BP 137/72; PULSE 105; RESP 16; TEMP 98.6; O2SAT 95
--- NOTE | 2025-06-17 13:44 | ECG ---
[facility] Test Date: 2025-06-16 Test Time: 20:56:14 Pat Name: MICHAEL MARCUM Department: ED Room: Gender: M Card Filer: CONSTANCE : 1960 Requested By: TAIWO MORRIS Order Number: [id number] Reading MD: Measurements Intervals [place] Rate: 105 P: 49 [place]: 169 QRS: 260 QRSD: 97 T: 29 QT: 328 QTc: 434 Interpretive Statements Sinus tachycardia Left anterior fascicular block Abnormal R-wave progression, late transition Please click the below link to view image of tracing.
== END 2025-06-17 00:45 | disposition home or self-care (01) ==
LOC: ER 18:19
DX: R10.32 Left lower quadrant pain (principal); R10.12 Left upper quadrant pain; R74.01 Elevation of levels of liver transaminase levels; E11.9 Type 2 diabetes mellitus without complications; E78.5 Hyperlipidemia, unspecified; I10 Essential (primary) hypertension; Z79.01 Long term (current) use of anticoagulants; Z88.0 Allergy status to penicillin; Z79.899 Other long term (current) drug therapy; Z79.84 Long term (current) use of oral hypoglycemic drugs
CPT/HCPCS: 36415; 74176; 80053; 83690; 85025; 93005; 96372; 99285; J1885